=== PATIENT | male | born 1965 | race Two or more races ===

== ENCOUNTER 2021-11-11 07:45 | Inpatient (IN) | payer OTHER ==
[~2021-11-11] VITALS: Ht 165.1 cm; Wt 78.0 kg
[2021-11-11] MEDS ORDERED: KEPPRA750 MG PO (10:14)
[2021-11-11] MEDS ORDERED: DILANTIN100 MG PO (10:14)
[2021-11-11] MEDS ORDERED: ZESTRIL10 M1 PO (10:15)
[2021-11-11] MEDS ORDERED: SYNTHROID75 MCG PO (10:15)
[2021-11-11] MEDS ORDERED: PLAVIX75 MG PO (10:15)
[2021-11-11] MEDS ORDERED: TIVICAY50 MG PO (10:16)
[2021-11-11] MEDS ORDERED: CRESTOR20 MG PO (10:16)
[2021-11-18] MEDS ORDERED: DUI500 PO (15:44)
[2021-11-18] MEDS ORDERED: ELIQUIS2.5 MG PO (15:44)
[2021-11-18] MEDS ORDERED: PERCOCET 10-321 EACH PO (15:44)
== END 2021-11-18 19:00 | DRG 470 ==
LOC: SURH 11-16 07:45 → O/R 11-16 18:44 → SURH 11-16 18:44
PROVIDERS: ADMIT Orthopaedic Surgery; ATTEND Orthopaedic Surgery
PROC: 0SR90JZ Replacement of Right Hip Joint with Synthetic Substitute, Open Approach (ICD-10-PCS; principal; 2021-11-16 13:00)
DX: M16.11 Unilateral primary osteoarthritis, right hip (principal); D62 Acute posthemorrhagic anemia; B20 Human immunodeficiency virus [HIV] disease; I10 Essential (primary) hypertension; M25.751 Osteophyte, right hip; M70.61 Trochanteric bursitis, right hip; E03.8 Other specified hypothyroidism; Z86.73 Personal history of transient ischemic attack (TIA), and cerebral infarction without residual deficits